=== PATIENT | female | born 1975 | race African-American/Black ===

== ENCOUNTER 2017-10-01 10:28 | Emergency (ER) | payer OTHER ==
[2017-10-01] MEDS ORDERED: HYDROCODONE/ACETAMINOPHEN 5-325 MG TABLET PO ONE (10:54)
--- NOTE | 2017-10-01 11:44 | RADIOLOGY REPORT (SQ) ---
EXAM DESCRIPTION: CT HEAD WITHOUT COMPLETED DATE/TIME: 10/01/2017 11:21 am REASON FOR STUDY: fall/?loc COMPARISON: None. TECHNIQUE: Axial images acquired through the brain without intravenous contrast. Images reviewed wi th bone, brain and subdural windows. Images stored on PACS. All CT scanners at this facility use dose modulation, iterative reconstruction, and/or weight based d osing when appropriate to reduce radiation dose to as low as reasonably achievable (ALARA). [facility]: Dose Right [facility]: CareDose [facility]: Dose Right [facility]: Teradose 4D [facility]: [employer]CP [employer] I RADIATION DOSE: CT Rad equipment meets quality standard of care and radiation dose reduction techniq ues were employed. CTDIvol: 64.6 mGy. DLP: 1292 mGy-cm. mGy. LIMITATIONS: None. FINDINGS: VENTRICLES: Normal size and contour. CEREBRUM: No masses. No hemorrhage. No midline shift. No evidence for acute infarction. Normal gra y/white matter differentiation. No areas of low density in the white matter. CEREBELLUM: No masses. No hemorrhage. No alteration of density. No evidence for acute infarction. EXTRAAXIAL SPACES: No fluid collections. No masses. ORBITS AND GLOBE: No intra- or extraconal masses. Normal contour of globe without masses. CALVARIUM: No fracture. PARANASAL SINUSES: No fluid or mucosal thickening. SOFT TISSUES: No mass or hematoma. OTHER: No other significant finding. IMPRESSION: NORMAL BRAIN CT WITHOUT CONTRAST. EVIDENCE OF ACUTE STROKE: NO. COMMENT: Quality ID # [id number]: Final reports with documentation of one or more dose reduction techniques (e.g., Automated exposure control, adjustment of the mA and/or kV according to patient size, use of iterative reconstruction technique) TECHNICAL DOCUMENTATION: JOB ID: [id number] [employer]- All Rights Reserved
--- NOTE | 2017-10-01 12:45 | RADIOLOGY REPORT (SQ) ---
EXAM DESCRIPTION: DUPLEX ART/DANIEL FLOW COMPLETE COMPLETED DATE/TIME: 10/01/2017 12:34 pm REASON FOR STUDY: ATHEROSCLEROSIS OF RENAL ARTERY COMPARISON: None. TECHNIQUE: Realtime and static grayscale images acquired. Selected color Doppler, velocities and spe ctral images recorded. LIMITATIONS: Unable to evaluate the renal arteries as they originate off the aorta due to midline chel wel gas. FINDINGS: RIGHT KIDNEY: RENAL ARTERY VELOCITIES: 114 cm/sec. Segmental artery velocity 83 cm/sec. RENAL VEIN: Color doppler flow present, patent. VELOCITY RATIO: 1.8. Normal waveforms. KIDNEY: 8.3 cm in length. No significant pathology. LEFT KIDNEY: RENAL ARTERY VELOCITIES: 97 cm/sec. Segmental artery velocity 61 cm/sec. RENAL VEIN: Color doppler flow present, patent. VELOCITY RATIO: 1.5. Normal waveforms. KIDNEY: 10.4 cm in length. No significant pathology. BLADDER: Normal. OTHER: No other significant finding. IMPRESSION: Unable to evaluate the renal arteries at the origin off the aorta because midline bowel gas. Renal artery tracings at the ayo, segmental renal artery tracings are normal. No hydronephrosis, stones, or masses. Bladder unremarkable. COMMENT: NORMAL RENAL ARTERY/AORTA VELOCITY RATIO IS LESS THAN OR EQUAL TO 3.5. TECHNICAL DOCUMENTATION: JOB ID: [id number] [employer]- All Rights Reserved
--- NOTE | 2017-10-01 13:00 | ER Document Report ---
ED Medical Screen (RME) - General Chief Complaint: Fall Stated Complaint: FALL/HIT HEAD Time Seen by Provider: 10/01/17 10:50 Mode of Arrival: Ambulatory Information source: Patient Notes: Patient states that she was on her way to the hospital when she slipped and fell on the ice. She struck the back of her head. She states she may have lost consciousness because she was unable to stand up. The pain is in the back of her head and constant. It does radiate into her neck. It is worse with movement better with rest. She denies any nausea. No change of vision. She denies any other significant injuries. She also states that she was on her way to the hospital so she can have a renal artery ultrasound. This will be ordered at the same time as her head CT scan. TRAVEL OUTSIDE OF THE [place] IN LAST 30 DAYS: No - Related Data Allergies/Adverse Reactions: No Known Allergies Allergy (Verified 10/01/17 11:23) Past Medical History - General Information source: Patient - Social History Chew tobacco use (# tins/day): No Frequency of alcohol use: None Drug Abuse: None - Past Medical History Cardiac Medical History: Reports: Hx Hypertension Endocrine Medical History: Reports: Hx Diabetes Mellitus Type 2 Renal/ Medical History: Denies: Hx Peritoneal Dialysis Psychiatric Medical History: Reports: Hx Depression Past Surgical History: Reports: Hx Section Review of Systems - Review of Systems Constitutional: denies: Chills, Fever Cardiovascular: denies: Chest pain, Palpitations Respiratory: denies: Cough, Short of breath Gastrointestinal: denies: Diarrhea, Vomiting -: Yes All other systems reviewed and negative Physical Exam - Vital signs Vitals: Temp Pulse Resp BP Pulse Ox 97.8 F 98 16 134/98 H 100 10/01/17 10:34 10/01/17 10:34 10/01/17 10:34 10/01/17 10:34 10/01/17 10:34 Interpretation: Hypertensive - General General appearance: Appears well, Alert - HEENT Head: Normocephalic, Atraumatic Eyes: Normal Pupils: PERRL - Respiratory Respiratory status: No respiratory distress Chest status: Nontender Breath sounds: Normal Chest palpation: Normal - Cardiovascular Rhythm: Regular Heart sounds: Normal auscultation Murmur: No - Abdominal Inspection: Normal Distension: No distension Bowel sounds: Normal Tenderness: Nontender Organomegaly: No organomegaly - Back Back: Normal, Nontender - Extremities General upper extremity: Normal inspection, Nontender, Normal color, Normal ROM , Normal temperature General lower extremity: Normal inspection, Nontender, Normal color, Normal ROM , Normal temperature, Normal weight bearing. No: Ronnie's sign - Neurological Neuro grossly intact: Yes Cognition: Normal Orientation: AAOx4 [place] Coma Scale Eye Opening: Spontaneous [place] Coma Scale Verbal: Oriented Karla Coma Scale Motor: Obeys Commands [place] Coma Scale Total: 15 Speech: Normal Motor strength normal: LUE, RUE, LLE, RLE Sensory: Normal - Psychological Associated symptoms: Normal affect, Normal mood - Skin Skin Temperature: Warm Skin Moisture: Dry Skin Color: Normal Course - Vital Signs Vital signs: Temp Pulse Resp BP Pulse Ox 97.8 F 98 16 134/98 H 100 10/01/17 10:34 10/01/17 10:34 10/01/17 10:34 10/01/17 10:34 10/01/17 10:34 - Diagnostic Test Radiology reviewed: Image reviewed, Reports reviewed - Patient has no evidence of acute intracranial injury on CT scan. Doctor's Discharge - Discharge Clinical Impression: Closed head injury Qualifiers: Encounter type: initial encounter Qualified Code(s): S09.90XA - Unspecified injury of head, initial encounter Condition: Stable Disposition: HOME, SELF-CARE Instructions: Concussion (OM) Additional Instructions: Your blood pressure is mildly elevated. Please have this rechecked within 1 week by your doctor. Some of your symptoms are consistent with a concussion. It is very important that you follow-up with your primary care physician within 3-5 days to be reevaluated. Prescriptions: Hydrocodone/Acetaminophen [[place] 5-325 mg Tablet] 1 tab PO Q8 PRN #8 tablet PRN Reason: Forms: Elevated Blood Pressure, Return to Work
[2017-10-01 13:42] VITALS: BP 132/89
== END 2017-10-01 13:42 | disposition home or self-care (01) ==
LOC: ER 10:28
DX: S09.90XA Unspecified injury of head, initial encounter (principal); W00.0XXA Fall on same level due to ice and snow, initial encounter; Y93.89 Activity, other specified; Y92.138 Other place on military base as the place of occurrence of the external cause; I10 Essential (primary) hypertension; E11.9 Type 2 diabetes mellitus without complications
CPT/HCPCS: 70450; 93975; 99283